=== PATIENT | female | born 1985 | race Caucasian/White ===

== ENCOUNTER 2021-12-14 15:44 | Emergency (ER) | payer BC | END 2021-12-14 17:15 | disposition home or self-care (01) | LOC: DL.ED 15:44 | DX: Z03.821 Encounter for observation for suspected ingested foreign body ruled out (principal); Z88.1 Allergy status to other antibiotic agents; Z79.899 Other long term (current) drug therapy | CPT/HCPCS: 74018; 81025; 99284 ==